=== PATIENT | female | born 1985 | race Caucasian/White ===

== ENCOUNTER 2017-07-21 12:44 | Emergency (ER) | payer OTHER ==
[~2017-07-21] VITALS: Ht 165.1 cm; Wt 158.8 kg
[~2017-07-21 12:44] MED LIST: LEVO500T59 PO; PRED-220 PO; PROAIR HFA8.5 GM IH
[2017-07-21 12:50] VITALS: BP 153/72
--- NOTE | 2017-07-21 13:26 | PHYS DOC ---
Past Medical History Past Medical History: Pneumonia Past Surgical History: Cholecystectomy, , Tonsillectomy Additional Past Surgical Histo: LASIK Alcohol Use: None Drug Use: None Adult General Chief Complaint Chief Complaint: COUGH HPI HPI Patient is a 32 year old female presents to the emergency department stating that she's had a cough and congestion for over 2 weeks. She states that she has been on a round of Zithromax which has not helped a whole lot. She states that she is having a nonproductive cough, chills or any nausea vomiting. Patient states she's also been using [id number] cough medication with no relief. Patient states she has increased coughing at night when she is trying to lay down. Review of Systems Review of Systems Constitutional: Denies fever or chills [] Eyes: Denies change in visual acuity, redness, or eye pain [] HENT: Denies nasal congestion or sore throat [] Respiratory: Cough and shortness of air with coughing. Cardiovascular: No additional information not addressed in HPI [] GI: Denies abdominal pain, nausea, vomiting, bloody stools or diarrhea [] : Denies dysuria or hematuria [] Musculoskeletal: Denies back pain or joint pain [] Integument: Denies rash or skin lesions [] Neurologic: Denies headache, focal weakness or sensory changes [] Endocrine: Denies polyuria or polydipsia [] Allergies Allergies Allergies Coded Allergies Type Severity Reaction Last Updated Verified No Known Drug Allergies 09/25/15 No Physical Exam Physical Exam Constitutional: Well developed, well nourished, no acute distress, non-toxic appearance. [] HENT: Normocephalic, atraumatic, bilateral external ears normal, oropharynx moist, no oral exudates, nose normal. Bilateral tympanic membranes appear to be normal. Throat with redness noted. Patient with no anterior cervical adenopathy noted. No frontal or maxillary sinus tenderness noted. Eyes: PERRLA, EOMI, conjunctiva normal, no discharge. [] Neck: Normal range of motion, no tenderness, supple, no stridor. [] Cardiovascular:Heart rate regular rhythm, no murmur [] Lungs & Thorax: Bilateral breath sounds clear to auscultation [] Skin: Warm, dry, no erythema, no rash. [] Extremities: No tenderness, no cyanosis, no clubbing, ROM intact, no edema. [] Neurologic: Alert and oriented X 3, normal motor function, normal sensory function, no focal deficits noted. [] Psychologic: Affect normal, judgement normal, mood normal. [] Current Patient Data Vital Signs Vital Signs Date Time Temp Pulse Resp B/P (MAP) Pulse Ox O2 Delivery O2 Flow Rate FiO2 07/21/17 12:50 98.6 101 24 97 Room Air 98.6 EKG EKG [] Radiology/Procedures Radiology/Procedures [][facility] [address] [place] [address] IMAGING REPORT Signed PATIENT: SALEEM HUI ACCOUNT: [id number] : 1985 LOCATION: ER AGE: 32 SEX: F EXAM STATUS: REG ER ORD. PHYSICIAN: HALIEE JOHN APRN REASON: cough and congestion already been on antibiotics PROCEDURE: CHEST PA & LATERAL Chest radiograph 07/21/2017 3:05 PM Indication: Worsening cough, history of pneumonia last year Comparison: Chest radiograph 09/25/2015 Technique: PA and lateral views of the chest are provided. Findings: Cardiomediastinal silhouette is within normal limits. No pleural effusions, pulmonary vascular congestion or pneumothorax. The lungs are clear. Osseous structures are normal. Impression: No acute cardiopulmonary process. DICTATED and SIGNED BY: LILIBETH BUSTAMANTE MD DATE: 07/21/17 1354 CC: JEANNE MÁRQUEZ MD; HAILEE JOHN APRN; NON,STAFF ~ Course & Med Decision Making Course & Med Decision Making Pertinent Labs and Imaging studies reviewed. (See chart for details) X-rays were negative for any abnormality per radiology. Patient will be placed on Augmentin with a pro-air. She'll also be provided with a prescription for prednisone. She'll be discharged home with an upper respiratory infection. Signs and symptoms to return back to emergency department as been provided. All questions and concerns been answered at patient's bedside. Also recommended the patient to use Tessalon Perles to help with her cough and congestion. Patient will be encouraged to follow-up with her primary care physician in the next 3-5 days. Recommended plenty of fluids. Patient will be discharged in stable condition. [] Dragon Disclaimer Dragon Disclaimer This electronic medical record was generated, in whole or in part, using a voice recognition dictation system. Departure Departure Impression: Primary Impression: URI (upper respiratory infection) Disposition: 01 HOME, SELF-CARE Condition: STABLE Referrals: JEANNE MÁRQUEZ MD (PCP) Patient Instructions: Upper Respiratory Infection, Adult, [id number] Additional Instructions: Activity as tolerated Medication as prescribed Drink plenty of fluids Sudafed as directed by manufacture over the counter Followup with primary care provider in 3-5 days Return to emergency department as needed for signs and symptoms that become worse. Scripts Albuterol Sulfate (PROAIR HFA INHALER) 8.5 Gm Hfa.aer.ad 1 PUFF INH PRN Q6HRS Y for SHORTNESS OF BREATH, #1 INHALER 0 Refills Prov: HAILEE JOHN APRN 07/21/17 Benzonatate (TESSALON PERLE) 100 Mg Capsule 1 CAP PO TID, #30 CAP Prov: HAILEE JOHN APRN 07/21/17 Prednisone (PREDNISONE) 20 Mg Tablet 40 MG PO DAILY for 7 Days, #14 TAB Prov: HAILEE JOHN APRN 07/21/17 Amoxicillin/Potassium Clav (AUGMENTIN 875-125 TABLET) 1 Each Tablet 1 TAB PO BID, #20 TAB Prov: HAILEE JOHN APRN 07/21/17 Problem Qualifiers Primary Impression: URI (upper respiratory infection) URI type: unspecified URI Qualified Codes: J06.9 - Acute upper respiratory infection, unspecified HAILEE JOHN APRN Jul 21, 2017 13:26
--- NOTE | 2017-07-21 13:59 | RAD ---
Chest radiograph 07/21/2017 3:05 PM Indication: Worsening cough, history of pneumonia last year Comparison: Chest radiograph 09/25/2015 Technique: PA and lateral views of the chest are provided. Findings: Cardiomediastinal silhouette is within normal limits. No pleural effusions, pulmonary vascular congestion or pneumothorax. The lungs are clear. Osseous structures are normal. Impression: No acute cardiopulmonary process.
[2017-07-21] MEDS ORDERED: PRED20TA PO (14:10)
[2017-07-21] MEDS ORDERED: AMOX1TAB61 PO (14:10)
[2017-07-21] MEDS ORDERED: BENZ100C PO (14:10)
[2017-07-21] MEDS ORDERED: PROAIR HFA8.5 GM INH (14:10)
== END 2017-07-21 14:20 | disposition home or self-care (01) ==
LOC: ER 12:44
DX: J06.9 Acute upper respiratory infection, unspecified (principal)
CPT/HCPCS: 71020; 99284-25

== ENCOUNTER 2017-08-07 04:32 | Emergency (ER) | payer OTHER ==
[~2017-08-07 04:32] MED LIST changes: +AMOX1TAB61 PO; +BENZ100C PO; +PRED20TA PO; +PROAIR HFA8.5 GM INH
[2017-08-07 04:50] VITALS: BP 155/96
[2017-08-07 05:55] LABS: POTASSIUM ISTAT 3.7 mmol/L (3.5-5.0)
[2017-08-07 06:05] LABS: CALCIUM 8.6 mg/dL (8.5-10.1); CREATININE 0.9 mg/dL (0.6-1.0); POTASSIUM 3.8 mmol/L (3.5-5.1)
--- NOTE | 2017-08-07 06:06 | PHYS DOC ---
Past Medical History Past Medical History: Pneumonia Past Surgical History: Cholecystectomy, , Tonsillectomy Additional Past Surgical Histo: LASIK Alcohol Use: None Drug Use: None Adult General Chief Complaint Chief Complaint: VAGINAL BLEEDING HPI HPI Patient is a 32 year old female who presents here today secondary to excessive vaginal bleeding. Patient reports that she recently DC her Mirena. Patient reports after stopping her Mirena she started having periods this is her second period now and she reports that she's been having more bleeding than she expects. Patient reports that she's gone through approximately one tampon every 3-4 hours throughout the course of the day however this evening she reports that she was changing her tampon every hour to hour and a half and was concerned. Patient denies any other symptomatology. Patient denies any fevers shakes chills nausea vomiting diarrhea chest pain terns of breath cough cold or rhinorrhea. Patient has any dizziness. Review of Systems Review of Systems Constitutional: Denies fever or chills [] Eyes: Denies change in visual acuity, redness, or eye pain [] HENT: Denies nasal congestion or sore throat [] Respiratory: Denies cough or shortness of breath [] Cardiovascular: No additional information not addressed in HPI [] GI: Denies abdominal pain, nausea, vomiting, bloody stools or diarrhea [] : Denies dysuria or hematuria [] Musculoskeletal: Denies back pain or joint pain [] Integument: Denies rash or skin lesions [] Neurologic: Denies headache, focal weakness or sensory changes [] Endocrine: Denies polyuria or polydipsia [] All other systems were reviewed and found to be within normal limits, except as documented in this note. Allergies Allergies Allergies Coded Allergies Type Severity Reaction Last Updated Verified No Known Drug Allergies 09/25/15 No Physical Exam Physical Exam Constitutional: Well developed, well nourished, no acute distress, non-toxic appearance. [] HENT: Normocephalic, atraumatic, bilateral external ears normal, oropharynx moist, no oral exudates, nose normal. [] Eyes: PERRLA, EOMI, conjunctiva normal, no discharge. [] Neck: Normal range of motion, no tenderness, supple, no stridor. [] Cardiovascular:Heart rate regular rhythm, no murmur [] Lungs & Thorax: Bilateral breath sounds clear to auscultation [] Abdomen: Bowel sounds normal, soft, no tenderness, no masses, no pulsatile masses. [] Skin: Warm, dry, no erythema, no rash. [] Back: No tenderness, no CVA tenderness. [] Extremities: No tenderness, no cyanosis, no clubbing, ROM intact, no edema. [] Neurologic: Alert and oriented X 3, normal motor function, normal sensory function, no focal deficits noted. [] Psychologic: Affect normal, judgement normal, mood normal. [] Patient's ER physical exam is significant for minimal vaginal bleeding on pelvic exam. Patient's os is closed. There were no clots. Patient's exam was nontender. Current Patient Data Lab Values Laboratory Tests Test 08/07/17 05:29 08/07/17 05:48 POC Urine HCG, Qualitative Hcg negative (Negative) POC Hemoglobin 15.6 g/dL (12-15) H POC Hematocrit 46 % (36-40) H POC Sodium 142 mmol/L (135-145) POC Potassium 3.7 mmol/L (3.5-5.0) POC Chloride 103 mmol/L (98-110) POC Total CO2 31 mmol/L (23-32) Anion Gap 13 mmol/L (6-14) POC Blood Urea Nitrogen 12 mg/dL (8-26) POC Creatinine 0.9 mg/dL (0.5-1.4) Glucose Level 116 mg/dL (70-99) H POC Ionized Calcium (Gustavo) 1.11 mmol/L (1.13-1.32) L Laboratory Tests 08/07/17 05:48 EKG EKG [] Radiology/Procedures Radiology/Procedures [] Course & Med Decision Making Course & Med Decision Making Pertinent Labs and Imaging studies reviewed. (See chart for details) []This is a 32-year-old female who presents to the ER today for further evaluation of excessive vaginal bleeding likely related to be seeing her Mirena. I-STAT was obtained which revealed a hemoglobin of 15.6 and hematocrit of 46. Patient is clinically hemodynamically stable in the ED. I have reassured the patient that her bleeding is likely secondary to hormonal changes. Patient was instructed to follow-up with her [employer] doctor in the morning to discuss with them expectations regarding her vaginal bleeding after stopping the Mirena. Patient does not present with any signs or symptoms that were consistent with anemia or significant blood loss at this time. Patient is not with any signs or symptoms consistent with dizziness, postural hypotension, chest pain or shortness of breath. Patient will be discharged home in stable condition. Dragon Disclaimer Dragon Disclaimer This electronic medical record was generated, in whole or in part, using a voice recognition dictation system. Departure Departure Impression: Primary Impression: Abdominal pain Additional Impression: Abnormal vaginal bleeding Disposition: HOME, SELF-CARE Condition: IMPROVED Referrals: JEANNE MÁRQUEZ MD (PCP) Patient Instructions: Abnormal Uterine Bleeding Additional Instructions: Please follow up with your family doctor/[employer] doctor in the morning and discuss with him your concerns. Return to the ER if you have any shortness of breath, dizziness, or feeling like he might pass out. Return the ER if you have increased bleeding that is concerning to. Problem Qualifiers RENNY ROBLEDO MD Aug 07, 2017 06:06
[2017-08-07 06:12] LABS: BASO # 0.1 x10^3/uL (0.0-0.2); BASO % 1 % (0-3); EOS % 2 % (0-3); HEMATOCRIT 43.6 % (36.0-47.0); HEMOGLOBIN 14.1 g/dL (12.0-15.5); LYMPH # 2.2 x10^3/uL (1.0-4.8); LYMPH % 24 % (24-48); MEAN CORPUSCULAR HEMOGLOBIN 28 pg (25-35); MEAN CORPUSCULAR HGB CONC 32 g/dL (31-37); MEAN CORPUSCULAR VOLUME 86 fL (79-100); MONO % 6 % (0-9); NEUT % 68 % (31-73); PLATELET COUNT 380 x10^3/uL (140-400); RED BLOOD COUNT 5.07 x10^6/uL (3.50-5.40); RED CELL DISTRIBUTION WIDTH 15.1 % (11.5-14.5); WHITE BLOOD COUNT 9.2 x10^3/uL (4.0-11.0)
== END 2017-08-07 06:15 | disposition home or self-care (01) ==
LOC: ER 04:32
DX: N93.9 Abnormal uterine and vaginal bleeding, unspecified (principal); R10.9 Unspecified abdominal pain
CPT/HCPCS: 36415; 80047; 80048; 81025; 85014; 85018; 85025; 99284

== ENCOUNTER 2018-04-04 07:14 | Emergency (ER) | payer OTHER ==
[2018-04-04] MEDS ORDERED: IPRATRPIUM/ALBUTEROL 0.5/2.5MG 3 ML NEBU. (08:31)
[2018-04-04] MEDS: IPRATRPIUM/ALBUTEROL 0.5/2.5MG 3 ML NEBU. NEB (08:33)
[2018-04-04] MEDS: methylPREDNISolone SOD SUCC PF 125 MG/2 ML VIAL. IM (08:46)
== END 2018-04-04 09:56 | disposition home or self-care (01) ==
LOC: ER 07:14
DX: J20.9 Acute bronchitis, unspecified (principal)
CPT/HCPCS: 71045; 94640; 96372; 99283-25; J2930; J7620